=== PATIENT | female | born 1955 | race Caucasian/White ===

== ENCOUNTER 2018-12-21 22:06 | Observation (INO) | payer BC, OTHER ==
[2018-12-21 23:27] LABS: Absolute Lymphocytes (CBC) 1.9 K/uL (0.7-4.9); Absolute Monocytes 0.4 K/uL (0.1-1.3); Absolute Neutrophil 3.5 K/uL (1.8-8.0); Basophils % 0.9 % (0-1.3); Eosinophils % 2.2 % (0-4.4); Hematocrit 41.1 % (36.0-45.0); Lymphocytes % 32.2 % (15.3-44.8); Monocytes % 6.2 % (3.3-12.3); RBC Red Blood Cell Count 4.57 M/uL (3.86-4.86)
[2018-12-21 23:45] LABS: Protime INR 0.97
[2018-12-21] MEDS ORDERED: ASPIRIN 81 MG CHEWABLE TABLET ONE (23:45)
[2018-12-21] MEDS ORDERED: ENOXAPARIN 100 MG/ML SYR SQ ONE (23:45)
[2018-12-21] MEDS ORDERED: PANTOPRAZOLE 40 MG INJ ONE (23:45)
[2018-12-21] MEDS ORDERED: NA CHLORIDE 0.9% 1,000 ML ONE (23:45)
[2018-12-21] MEDS ORDERED: METOPROLOL TAR 50 MG TAB ONE (23:45)
--- NOTE | 2018-12-21 23:55 | ER ---
Nurse's Notes [facility] Name: Malina Adler Age: 63 yrs Sex: Female : 1955 Arrival Date: 12/21/2018 Time: 22:11 Bed 3 Private MD: Diagnosis: Chest pain, unspecified Presentation: 12/21 22:20 Presenting complaint: Patient states: "Pain on and off to the left side of my chest and jd3 in my neck and left arm. it is probably GERD, but I don't know.". Transition of care: patient was not received from another setting of care. Onset of symptoms was December 18, 2018. Risk Assessment: Do you want to hurt yourself or someone else? Patient reports no desire to harm self or others. Initial Sepsis Screen: Does the patient meet any 2 criteria? No. Patient's initial sepsis screen is negative. Does the patient have a suspected source of infection? No. Patient's initial sepsis screen is negative. Care prior to arrival: None. 22:20 Method Of Arrival: Ambulatory jd3 22:20 Acuity: TU 3 jd3 Historical: - Allergies: 22:25 No Known Allergies; jd3 - Home Meds: 22:25 levothyroxine oral [Active]; citalopram oral [Active]; meloxicam oral oral [Active]; jd3 gabapentin oral oral [Active]; - PMHx: 22:25 Crohn's; GERD; jd3 - PSHx: 22:25 NECK; Hernia repair; Hysterectomy; Cholecystectomy; ; jd3 - Immunization history:: Adult Immunizations up to date. - Social history:: Smoking status: Patient/guardian denies using tobacco. - Ebola Screening: : Patient negative for fever greater than or equal to 101.5 degrees Fahrenheit, and additional compatible Ebola Virus Disease symptoms. - Family history:: not pertinent. Screenin:35 Abuse screen: Denies threats or abuse. Denies injuries from another. Nutritional aa1 screening: No deficits noted. Tuberculosis screening: No symptoms or risk factors identified. Fall Risk None identified. Assessment: 22:35 General: Appears in no apparent distress. comfortable, Behavior is calm, cooperative, aa1 appropriate for age. Pain: Complains of pain in anterior aspect of left upper chest and mid-sternal area Pain radiates to left arm Quality of pain is described as pressure, Pain began 2-3 days ago. Is intermittent. Neuro: Level of Consciousness is awake, alert, obeys commands, Oriented to person, place, time, situation, Moves all extremities. Full function Speech is normal. Cardiovascular: Reports chest pain, Denies diaphoresis, lightheadedness, nausea, palpitations, shortness of breath, Heart tones S1 S2 present Capillary refill < 3 seconds Clubbing of nail beds is absent JVD is absent Patient's skin is warm and dry. Rhythm is regular Chest pain is described as mild, quality is pressure. Respiratory: Airway is patent Respiratory effort is even, unlabored, Respiratory pattern is regular, symmetrical, Breath sounds are clear bilaterally. GI: No signs and/or symptoms were reported involving the gastrointestinal system. : No signs and/or symptoms were reported regarding the genitourinary system. EENT: No signs and/or symptoms were reported regarding the EENT system. Derm: Skin is intact, is healthy with good turgor, Skin is pink, warm \\T\\ dry. Musculoskeletal: Circulation, motion, and sensation intact. Capillary refill < 3 seconds. 23:52 Reassessment: Patient appears in no apparent distress at this time. Patient and/or aa1 family updated on plan of care and expected duration. Pain level reassessed. Patient is alert, oriented x 3, equal unlabored respirations, skin warm/dry/pink. Awaiting lab results. 12/22 01:05 Reassessment: Patient appears in no apparent distress at this time. Patient and/or aa1 family updated on plan of care and expected duration. Pain level reassessed. Patient is alert, oriented x 3, equal unlabored respirations, skin warm/dry/pink. Dr. Styles at bedside for admission assessment. 02:15 Reassessment: Patient appears in no apparent distress at this time. Patient is alert, aa1 oriented x 3, equal unlabored respirations, skin warm/dry/pink. Report given to Lacey on 4th floor Patient denies pain at this time. Vital Signs: 12/21 22:21 BP 151 / 75; Pulse 83; Resp 18 S; Temp 97.9(O); Pulse Ox 98% on R/A; Weight 89.81 kg jd3 (R); Height 5 ft. 6 in. (167.64 cm) (R); Pain 5/10; 23:52 BP 139 / 66; Pulse 83; Resp 16; Pulse Ox 99% on R/A; Pain 4/10; aa1 12/22 00:58 BP 143 / 74; Pulse 71; Resp 16; Pulse Ox 98% on R/A; aa1 02:00 BP 132 / 74; Pulse 65; Resp 20; Pulse Ox 97% on R/A; lp1 02:45 BP 138 / 85; Pulse 68; Resp 18; Temp 98.0; Pulse Ox 99% on R/A; Pain 0/10; aa1 12/21 22:21 Body Mass Index 31.96 (89.81 kg, 167.64 cm) jd3 ED Course: 12/21 22:11 Patient arrived in ED. ds1 22:21 Triage completed. jd3 22:22 Arm band placed on. jd3 22:35 Patient has correct armband on for positive identification. Placed in gown. Bed in low aa1 position. Call light in reach. vehicle monitor technician on. Pulse ox on. NIBP on. Warm blanket given. 22:35 Patient maintains SpO2 saturation greater than 95% on room air. aa1 22:49 Roge Lazar MD is Attending Physician. tay 23:15 Inserted saline lock: 20 gauge in right antecubital area, using aseptic technique. ar5 23:20 X-ray completed. Portable x-ray completed in exam room. Patient tolerated procedure kw well. 23:45 XRAY Chest (1 view) In Process Unspecified. EDMS 23:46 Felicia Rose RN is Primary Nurse. aa1 12/22 01:31 Sabino Ball MD is Hospitalizing Provider. kb 02:14 No provider procedures requiring assistance completed. Patient admitted, IV remains in lp1 place. Administered Medications: 12/21 23:45 Drug: NS 0.9% 1000 ml Route: IV; Rate: 75 ml/hr; Site: right antecubital; lp1 12/22 02:21 Follow up: IV Status: IV converted to saline lock lp1 12/21 23:45 Drug: Aspirin 162 mg Route: PO; lp1 12/22 01:00 Follow up: Response: No adverse reaction lp1 12/21 23:45 Drug: Lopressor (metoprolol TARTRATE) 50 mg Route: PO; lp1 12/22 01:00 Follow up: Response: No adverse reaction lp1 12/21 23:46 Drug: ProTONIX 40 mg Route: IVP; Site: right antecubital; lp1 12/22 01:00 Follow up: Response: No adverse reaction lp1 01:36 Drug: Lovenox 1 mg/kg Route: Sub-Q; Site: right lower abdomen; aa1 02:13 Follow up: Response: No adverse reaction lp1 01:37 Not Given (Patient Refused): morphine 2 mg IVP once aa1 01:37 Not Given (Patient Refused): Zofran 4 mg IVP once; over 2 minutes aa1 Outcome: 12/21 23:54 Decision to Hospitalize by Provider. [facility] 12/22 02:14 Condition: stable lp1 Instructed on the need for admit. 02:19 Admitted to Tele accompanied by tech, via wheelchair, room 428, with chart, Report lp1 called to NORMAN Rahman 03:08 Patient left the ED. aa1 Signatures: Dispatcher [employer] EDSelena Calero, ROHIT MATHEWSP-Felicia Delacruz, RN RN aa1 Roge Lazar MD MD cha Sanford, Isabel ds1 Shaina Feng Laura, RN RN lp1 Ranyd Samuel RN RN Nata Malin ar5
--- NOTE | 2018-12-21 23:56 | EDPHYS ---
Physician Documentation [facility] Name: Malina Adler Age: 63 yrs Sex: Female : 1955 Arrival Date: 12/21/2018 Time: 22:11 Bed 3 Private MD: ED Physician Roge Lazar HPI: 12/21 23:07 This 63 yrs old Female presents to ER via Ambulatory with complaints of Chest tay Pain, L Side Pain. 23:07 The patient or guardian reports chest pain that is located primarily in the substernal tay area, anterior chest wall. Onset: 3 day(s) ago. The pain radiates to the left arm. Associated signs and symptoms: Pertinent positives: dizziness, shortness of breath. The chest pain is described as a heaviness, a pressure. Modifying factors: The symptoms are alleviated by nothing. the symptoms are aggravated by nothing. Severity of pain: At its worst the pain was moderate in the emergency department the pain has improved mildly. The patient has experienced similar episodes in the past, several times. Historical: - Allergies: 22:25 No Known Allergies; jd3 - Home Meds: 22:25 levothyroxine oral [Active]; citalopram oral [Active]; meloxicam oral oral [Active]; jd3 gabapentin oral oral [Active]; - PMHx: 22:25 Crohn's; GERD; jd3 - PSHx: 22:25 NECK; Hernia repair; Hysterectomy; Cholecystectomy; ; jd3 - Immunization history:: Adult Immunizations up to date. - Social history:: Smoking status: Patient/guardian denies using tobacco. - Ebola Screening: : Patient negative for fever greater than or equal to 101.5 degrees Fahrenheit, and additional compatible Ebola Virus Disease symptoms. - Family history:: not pertinent. ROS: 23:07 Constitutional: Negative for fever, chills, and weight loss, Eyes: Negative for injury, tay pain, redness, and discharge, ENT: Negative for injury, pain, and discharge, Neck: Negative for injury, pain, and swelling, Cardiovascular: Negative for chest pain, palpitations, and edema, Abdomen/GI: Negative for abdominal pain, nausea, vomiting, diarrhea, and constipation, Back: Negative for injury and pain, : Negative for injury, bleeding, discharge, and swelling, MS/Extremity: Negative for injury and deformity, Skin: Negative for injury, rash, and discoloration, Neuro: Negative for headache, weakness, numbness, tingling, and seizure, Psych: Negative for depression, anxiety, suicide ideation, homicidal ideation, and hallucinations, Allergy/Immunology: Negative for hives, rash, and allergies, Endocrine: Negative for neck swelling, polydipsia, polyuria, polyphagia, and marked weight changes, Hematologic/Lymphatic: Negative for swollen nodes, abnormal bleeding, and unusual bruising. 23:07 Respiratory: Positive for cough, shortness of breath, at rest. Exam: 23:07 Constitutional: This is a well developed, well nourished patient who is awake, alert, tay and in no acute distress. Head/Face: Normocephalic, atraumatic. Eyes: Pupils equal round and reactive to light, extra-ocular motions intact. Lids and lashes normal. Conjunctiva and sclera are non-icteric and not injected. Cornea within normal limits. Periorbital areas with no swelling, redness, or edema. ENT: Nares patent. No nasal discharge, no septal abnormalities noted. Tympanic membranes are normal and external auditory canals are clear. Oropharynx with no redness, swelling, or masses, exudates, or evidence of obstruction, uvula midline. Mucous membranes moist. Neck: Trachea midline, no thyromegaly or masses palpated, and no cervical lymphadenopathy. Supple, full range of motion without nuchal rigidity, or vertebral point tenderness. No Meningismus. Chest/axilla: Normal chest wall appearance and motion. Nontender with no deformity. No lesions are appreciated. Cardiovascular: Regular rate and rhythm with a normal S1 and S2. No gallops, murmurs, or rubs. Normal PMI, no JVD. No pulse deficits. Respiratory: Lungs have equal breath sounds bilaterally, clear to auscultation and percussion. No rales, rhonchi or wheezes noted. No increased work of breathing, no retractions or nasal flaring. Abdomen/GI: Soft, non-tender, with normal bowel sounds. No distension or tympany. No guarding or rebound. No evidence of tenderness throughout. Back: No spinal tenderness. No costovertebral tenderness. Full range of motion. Skin: Warm, dry with normal turgor. Normal color with no rashes, no lesions, and no evidence of cellulitis. MS/ Extremity: Pulses equal, no cyanosis. Neurovascular intact. Full, normal range of motion. Neuro: Awake and alert, GCS 15, oriented to person, place, time, and situation. Cranial nerves II-XII grossly intact. Motor strength 5/5 in all extremities. Sensory grossly intact. Cerebellar exam normal. Normal gait. Psych: Awake, alert, with orientation to person, place and time. Behavior, mood, and affect are within normal limits. 23:07 Musculoskeletal/extremity: ROM: intact in all extremities, full active range of motion, full passive range of motion, Circulation is intact in all extremities. Sensation intact. Compartment Syndrome exam of affected extremity: is normal. DVT Exam: No signs of deep vein thrombosis. no pain, no swelling, no tenderness, negative Homans' sign noted on exam, no appreciated bluish discoloration, no erythema, no increased warmth. Vital Signs: 22:21 BP 151 / 75; Pulse 83; Resp 18 S; Temp 97.9(O); Pulse Ox 98% on R/A; Weight 89.81 kg jd3 (R); Height 5 ft. 6 in. (167.64 cm) (R); Pain 5/10; 23:52 BP 139 / 66; Pulse 83; Resp 16; Pulse Ox 99% on R/A; Pain 4/10; aa1 12/22 00:58 BP 143 / 74; Pulse 71; Resp 16; Pulse Ox 98% on R/A; aa1 02:00 BP 132 / 74; Pulse 65; Resp 20; Pulse Ox 97% on R/A; lp1 02:45 BP 138 / 85; Pulse 68; Resp 18; Temp 98.0; Pulse Ox 99% on R/A; Pain 0/10; aa1 12/21 22:21 Body Mass Index 31.96 (89.81 kg, 167.64 cm) jd3 MDM: 12/21 22:49 Patient medically screened. [facility] 23:10 Data reviewed: vital signs, nurses notes, lab test result(s), EKG, radiologic studies, [facility] CT scan, plain films. 12/21 23:06 Order name: Basic Metabolic Panel; Complete Time: 00:18 [facility] 12/21 23:06 Order name: CBC with Diff; Complete Time: 23:52 [facility] 12/21 23:06 Order name: LFT's; Complete Time: 00:18 [facility] 12/21 23:06 Order name: Magnesium; Complete Time: 00:18 [facility] 12/21 23:06 Order name: NT PRO-BNP; Complete Time: 00:18 [facility] 12/21 23:06 Order name: PT-INR; Complete Time: 23:52 [facility] 12/21 23:06 Order name: Troponin (emerg Dept Use Only); Complete Time: 00:18 [facility] 12/21 23:06 Order name: XRAY Chest (1 view) [facility] 12/21 23:06 Order name: Lipase; Complete Time: 00:18 [facility] 12/21 23:06 Order name: Urine Culture [facility] 12/21 23:06 Order name: EKG; Complete Time: 23:07 [facility] 12/21 23:06 Order name: Cardiac monitoring; Complete Time: 23:28 [facility] 12/21 23:06 Order name: EKG - Nurse/Tech; Complete Time: 23:27 [facility] 12/21 23:06 Order name: IV Saline Lock; Complete Time: 23:27 [facility] 12/21 23:06 Order name: Labs collected and sent; Complete Time: 23:27 [facility] 12/21 23:06 Order name: O2 Per Protocol; Complete Time: 23:27 [facility] 12/21 23:06 Order name: O2 Sat Monitoring; Complete Time: 23:27 [facility] Administered Medications: 23:45 Drug: NS 0.9% 1000 ml Route: IV; Rate: 75 ml/hr; Site: right antecubital; lp1 12/22 02:21 Follow up: IV Status: IV converted to saline lock lp1 12/21 23:45 Drug: Aspirin 162 mg Route: PO; lp1 12/22 01:00 Follow up: Response: No adverse reaction lp1 12/21 23:45 Drug: Lopressor (metoprolol TARTRATE) 50 mg Route: PO; lp1 12/22 01:00 Follow up: Response: No adverse reaction lp1 12/21 23:46 Drug: ProTONIX 40 mg Route: IVP; Site: right antecubital; lp1 12/22 01:00 Follow up: Response: No adverse reaction lp1 01:36 Drug: Lovenox 1 mg/kg Route: Sub-Q; Site: right lower abdomen; aa1 02:13 Follow up: Response: No adverse reaction lp1 01:37 Not Given (Patient Refused): morphine 2 mg IVP once aa1 01:37 Not Given (Patient Refused): Zofran 4 mg IVP once; over 2 minutes aa1 Disposition: 12/21/18 23:54 Hospitalization ordered by Sabino Ball for Observation. Preliminary diagnosis is Chest pain, unspecified. - Bed requested for Telemetry/MedSurg (observation). - Status is Observation. aa1 - Condition is Fair. - Problem is new. - Symptoms have improved. UTI on Admission? No Signatures: Dispatcher [employer] EDMS Selena Burrows, CINDER PITMAN-C CINDER PITMAN-CkFelicia Langston, RN RN aa1 Roge Lazar MD MD cha Pena, Laura, RN RN lp1 Randy Samuel RN RN jd3 Corrections: (The following items were deleted from the chart) 01:31 12/21 23:54 Hospitalization Ordered by for Observation. Preliminary diagnosis is Chest kb pain, unspecified. Bed requested for Telemetry/MedSurg (observation). Status is Observation. Condition is Fair. Problem is new. Symptoms have improved. UTI on Admission? No. tay 12/22 03:08 01:31 12/21/2018 23:54 Hospitalization Ordered by Sabino Ball MD for Observation. aa1 Preliminary diagnosis is Chest pain, unspecified. Bed requested for Telemetry/MedSurg (observation). Status is Observation. Condition is Fair. Problem is new. Symptoms have improved. UTI on Admission? No. kb
[2018-12-22 00:04] LABS: ALT/SGPT 25 U/L (12-78); AST/SGOT 24 U/L (15-37); Albumin 3.8 g/dL (3.4-5.0); Alkaline Phosphatase 113 U/L (45-117); BUN Blood Urea Nitrogen 16 mg/dL (7-18); Bicarbonate 25 mmol/L (21-32); Bilirubin Direct < 0.1 mg/dL (0-0.2); Bilirubin Total 0.2 mg/dL (0.2-1.0); Glucose Level 103 mg/dL (74-106); Lipase 130 U/L (73-393); Magnesium 1.9 mg/dL (1.8-2.4); NT PRO-BNP 42 pg/mL (<125); Potassium 3.6 mmol/L (3.5-5.1); Protein, Total 7.2 g/dL (6.4-8.2); Sodium Level 143 mmol/L (136-145); Troponin (Emerg Dept Use Only) < 0.02 ng/mL (0.0-0.045)
[2018-12-22] MEDS ORDERED: NITROGLYCERIN 0.4 MG/TAB SL PRN (02:40)
[2018-12-22] MEDS ORDERED: ACETAMINOPHEN 500 MG TAB PO PRN (02:40)
[2018-12-22 03:55] LABS: Absolute Lymphocytes (CBC) 2.6 K/uL (0.7-4.9); Absolute Monocytes 0.4 K/uL (0.1-1.3); Absolute Neutrophil 3.7 K/uL (1.8-8.0); Basophils % 0.7 % (0-1.3); Eosinophils % 1.9 % (0-4.4); Hematocrit 38.2 % (36.0-45.0); Lymphocytes % 37.3 % (15.3-44.8); RBC Red Blood Cell Count 4.23 M/uL (3.86-4.86)
[2018-12-22 04:06] LABS: BUN Blood Urea Nitrogen 18 mg/dL (7-18); Bicarbonate 28 mmol/L (21-32); Glucose Level 106 mg/dL (74-106); Sodium Level 144 mmol/L (136-145); Troponin I < 0.02 ng/mL (0.0-0.045)
--- NOTE | 2018-12-22 04:51 | P.HP ---
Certification for Inpatient Patient admitted to: Observation With expected LOS: <2 Midnights Practitioner: I am a practitioner with admitting privileges, knowledge of patient current condition, hospital course, and medical plan of care. Services: Services provided to patient in accordance with Admission requirements found in Title 42 Section 412.3 of the Code of Federal Regulations Patient History Date of Service: 12/22/18 Reason for admission: chest pain History of Present Illness: Ms Adler is a 63 years old woman with history of hypothyroidism, GERD who came to ED complaining of chest pain. The pain started early in the morning and is comes and go. It is a pressure like pain, retrosternal, radiated to the left arm and back. When the pain start, it last for about 20 minutes. 6/10 of intensity, never had this symptoms in the past. Lab work remarkable for normal WBC count, initial trop I is negative, EKG without ST-T abnormalities. Allergies avocado Allergy (Verified 12/22/18 03:38) Anaphylaxis Home medications list reviewed: Yes Home Medications: Citalopram [Celexa*] 20 mg PO DAILY 6PM 12/22/18 Dicyclomine HCl 20 mg PO QID PRN 12/22/18 Gabapentin 600 mg PO BID 12/22/18 Levothyroxine [Synthroid] 2 tab PO [id number] 12/22/18 Meloxicam 15 mg PO DAILY 12/22/18 - Past Medical/Surgical History Has patient received pneumonia vaccine in the past: Yes Diabetic: No -: crohns -: gerd -: hypothyroidism -: hernia repair -: hysterectomy -: colecystectomy -: neck surgery - Family History Father -: Heart disease Mother -: Heart disease - Social History Smoking Status: Never smoker Alcohol use: Yes CD- Drugs: No Caffeine use: Yes Place of Residence: Home Review of Systems 10-point ROS is otherwise unremarkable Physical Examination - Physical Exam General: Alert, In no apparent distress HEENT: Atraumatic, PERRLA, Mucous membr. moist/pink, EOMI, Sclerae nonicteric Neck: Supple, 2+ carotid pulse no bruit, No LAD, Without JVD or thyroid abnormality Respiratory: Clear to auscultation bilaterally, Normal air movement Cardiovascular: Regular rate/rhythm, Normal S1 S2 Gastrointestinal: Normal bowel sounds, No tenderness Musculoskeletal: No tenderness Integumentary: No rashes Neurological: Normal speech, Normal strength at 5/5 x4 extr, Normal tone, Normal affect Lymphatics: No axilla or inguinal lymphadenopathy - Studies Laboratory Data (last 24 hrs) 12/21/18 23:35: PT 11.4, INR 0.97 12/21/18 23:15: WBC 6.0, Hgb 13.8, Hct 41.1, Plt Count 234 12/21/18 23:15: Sodium 143, Potassium 3.6, BUN 16, Creatinine 0.80, Glucose 103 , Magnesium 1.9, Total Bilirubin 0.2, AST 24, ALT 25, Alkaline Phosphatase 113, Lipase 130 Assessment and Plan - Problems (Diagnosis) (1) Chest pain Current Visit: Yes Status: Acute Qualifiers: Chest pain type: precordial pain Qualified Code(s): R07.2 - Precordial pain (2) Hypothyroidism Current Visit: Yes Status: Acute Qualifiers: Hypothyroidism type: unspecified Qualified Code(s): E03.9 - Hypothyroidism , unspecified (3) GERD (gastroesophageal reflux disease) Current Visit: Yes Status: Acute Qualifiers: Esophagitis presence: without esophagitis Qualified Code(s): K21.9 - Gastro -esophageal reflux disease without esophagitis - Plan Will admit the patient to the hospital due to chest pain to rule out ACS. Will order serial cardiac enzymes, EKG, consult cardiology team. - Advance Directives Does patient have a Living Will: No Does patient have a Durable POA for Healthcare: No - Code Status/Comfort Care Code Status Assessed: Yes Code Status: Full Code
[2018-12-22 06:50] LABS: HDL Cholesterol 43 mg/dL (40-60); LDL Cholesterol, Calculated 94 (<130)
--- NOTE | 2018-12-22 06:59 | EKG ---
Test Date: 2018-12-21 Test Time: 22:39:06 Distribution Lineman: PHILLIP MEASUREMENT RESULTS: Intervals: Rate: 74 ND: 174 QRSD: 76 QT: 380 QTc: 421 [place]: P: 26 ND: 174 QRS: 38 T: 56 INTERPRETIVE STATEMENTS: Normal sinus rhythm Normal ECG Compared to ECG 11/29/2010 09:38:15 Myocardial infarct finding no longer present Electronically Signed On 12-22-18 06:51:40 LINING VAMPER by Rich Escalante
[2018-12-22 07:47] LABS: Thyroid Stimulating Hormone 0.01 uIU/mL (0.360-3.740)
[2018-12-22] MEDS ORDERED: REGADENOSON 0.4 MG/5 ML SYR IV ONE (08:07)
--- NOTE | 2018-12-22 08:29 | RAD REPORT ---
EXAM DESCRIPTION: RAD - Chest Single View - 12/21/2018 11:45 pm CLINICAL HISTORY: CHEST PAIN Chest pain. COMPARISON: CHEST PA AND LAT 2 VIEW dated 11/29/2010; CHEST PA AND LAT 2 VIEW dated 10/16/2010; CHEST SINGLE VIEW dated 10/30/2006 FINDINGS: Portable technique limits examination quality. The lungs are grossly clear. The heart is normal in size. No displaced fractures.Cervical hardware pl ate is noted. IMPRESSION: No acute intrathoracic process suspected.
[2018-12-22] MEDS ORDERED: ASPIRIN EC 81 MG TAB PO SCH (09:00)
--- NOTE | 2018-12-22 11:00 | ECHO ---
HEIGHT: 5 ft 6 in WEIGHT: 215 lb 3.2 oz DATE OF STUDY: 12/22/[address]: Sabino Styles MD 2-DIMENSIONAL: YES M.MODE: YES DOPPLER: YES COLOR FLOW: YES TDS: NO PORTABLE: NO DEFINITY: NO BUBBLE STUDY: NO DIAGNOSIS: CHEST PAIN CARDIAC HISTORY: CATHERIZATION: NO SURGERY: NO PROSTHETIC VALVE: NO PACEMAKER: NO MEASUREMENTS (cm) DIASTOLIC (NORMALS) SYSTOLIC (NORMALS) IVSd 1.1 (0.6-1.2) LA Diam 3.5 (1.9-4.0) LVEF 62% LVIDd 4.5 (3.5-5.7) LVIDs 3.0 (2.0-3.5) %FS 33% LVPWd 1.2 (0.6-1.2) Ao Diam 2.6 (2.0-3.7) 2 DIMENSIONAL ASSESSMENT: RIGHT ATRIUM: NORMAL LEFT ATRIUM: NORMAL RIGHT VENTRICLE: NORMAL LEFT VENTRICLE: NORMAL TRICUSPID VALVE: NORMAL MITRAL VALVE: NORMAL PULMONIC VALVE: NORMAL AORTIC VALVE: NORMAL PERICARDIAL EFFUSION: NONE AORTIC ROOT: NORMAL LEFT VENTRICULAR WALL MOTION: NORMAL. DOPPLER/COLOR FLOW: NORMAL. COMMENTS: NORMAL 2D ECHO WITH DOPPLER. TECHNOLOGIST: TRINITY TAVARES
[2018-12-22] MEDS ORDERED: ENOXAPARIN 100 MG/ML SYR SQ SCH (11:45)
--- NOTE | 2018-12-22 12:20 | CON ---
History Of Present Illness: Ms. dAler is 63. She came to the hospital with chest pain. She is having chest pain for several days. It seems to be a sharp stabbing pain that comes and goes, right in the front part of her chest. Never had myocardial infarction, stroke, or diabetes, or any vascula r disease. She takes meloxicam for degenerative joint disease. She also takes gabapentin, Celexa, l evothyroxine, and dicyclomine. Physical Examination: General: 5 feet 6 inches, 215 pounds. HEENT: Normal. Lungs: Clear. Cardiac: Within normal limits. Abdomen: Soft. Extremities: Normal. Diagnostic Data: Her electrocardiogram is normal. Recommendation: We should do a stress test and EKG on her. Check if enzymes are normal. If those a re normal, she could be discharged home. We can call this either pleurisy or gastritis. She should be cautioned against using meloxicam other than 2 or 3 days at a time. ELKE/CARMELA Voice ID: [id number] Report ID: [id number]
--- NOTE | 2018-12-22 13:05 | RAD REPORT ---
EXAM DESCRIPTION: NM - Rest Stress Cardiac Imaging - 12/22/2018 1:00 pm CLINICAL HISTORY: CP Chest pain. COMPARISON: No comparisons TECHNIQUE: The patient was administered approximately 10mCi of Tc 99m Sestamibi prior to resting SPE CT imaging of the heart. The patient was then administered approximately 30 mCi of Tc 99m Sestamibi f ollowing exercise or pharmacologic stress. Multiplanar SPECT images were reviewed. FINDINGS: No stress induced ischemic defect is seen to suggest stress induced ischemia. No fixed def ect is seen to suggest hibernating myocardium or scarred myocardium. The end diastolic volume is 81 ml, the end systolic volume is 27 ml, and the ejection fraction is 66 %. IMPRESSION: No stress induced ischemia.
--- NOTE | 2018-12-22 13:09 | P.DS ---
Admission Date: 12/22/18 Discharge Date: 12/22/18 Primary Care Provider: Dr. Parks; Cardiology-Dr. Escalante Disposition: ROUTINE DISCHARGE Discharge Condition: GOOD Reason for Admission: chest pain Consultations: Cardiology-Dr. Escalante Procedures: ECHO: Ejection fraction 62% LEFT VENTRICULAR WALL MOTION: NORMAL. DOPPLER/COLOR FLOW: NORMAL. COMMENTS: NORMAL 2D ECHO WITH DOPPLER. Cardiac stress test: COMPARISON: No comparisons TECHNIQUE: The patient was administered approximately 10mCi of Tc 99m Sestamibi prior to resting SPECT imaging of the heart. The patient was then administered approximately 30 mCi of Tc 99m Sestamibi following exercise or pharmacologic stress. Multiplanar SPECT images were reviewed. FINDINGS: No stress induced ischemic defect is seen to suggest stress induced ischemia. No fixed defect is seen to suggest hibernating myocardium or scarred myocardium. The end diastolic volume is 81 ml, the end systolic volume is 27 ml, and the ejection fraction is 66 %. IMPRESSION: No stress induced ischemia. Medical Problem List: Atypical chest pain likely GERD related Elevated blood pressure without hypertension Hypothyroidism GERD Depression Chronic pain Obesity, BMI 34 Brief History of Present Illness: 63-year-old female presented emergency room with chest pain. Initial cardiac enzymes unremarkable. Patient was admitted for further evaluation. Hospital Course: Patient presented with chest pain. Patient was admitted for further evaluation. Cardiac enzymes unremarkable. Patient seen and evaluated by Cardiology. Echocardiogram unremarkable. Cardiac stress test showed no stress-induced ischemia. This may be related to underlying GERD. Patient has been using meloxicam regularly for pain. Recommend to continue with Pepcid 20 mg 1 pill twice daily. Recommend to discontinue meloxicam. Recommend to follow up with cardiology as directed. Recommend to follow up with GI as an outpatient for further evaluation. Patient may require EGD in the future. Lifestyle modification education provided. Patient had mild elevation in blood pressure. Patient without hypertension. Recommend to monitor blood pressures closely. If her blood pressures remained elevated above 140/90 consistently she is to follow up with her PCP to further address. Patient with hypothyroidism. Thyroid level slightly abnormal. Patient takes levothyroxine 250 mcg daily. Recommend to follow up with her PCP in 1 week to recheck TSH and Free T4 levels. Decrease in medication may be required. Patient with depression. Patient will continue with her medication-Celexa 20 mg daily. Patient with chronic pain. Recommend to continue with gabapentin 600 mg twice daily. Recommend to discontinue meloxicam or use it sparingly. Further adjustment in medication may be required. Recommend to follow up with her PCP or pain management to further evaluate. Patient with obesity. Lifestyle modification education will be provided. Vital Signs/Physical Exam: Temp Pulse Resp BP Pulse Ox 97.6 F 65 18 125/75 98 12/22/18 08:00 12/22/18 08:00 12/22/18 08:00 12/22/18 08:00 12/22/18 08:00 General: Alert, In no apparent distress, Oriented x3, Cooperative HEENT: Atraumatic Neck: Supple Respiratory: Clear to auscultation bilaterally, Normal air movement Cardiovascular: Normal pulses, Regular rate/rhythm Gastrointestinal: Normal bowel sounds, Soft and benign, Non-distended, No tenderness, No masses, No rebound, No guarding Musculoskeletal: No erythema, No tenderness, No warmth Integumentary: No tenderness/swelling, No erythema, No warmth, No cyanosis Neurological: Normal speech, Normal strength at 5/5 x4 extr, Normal tone, Normal affect Laboratory Data at Discharge: WBC 6.9 K/uL (4.3-10.9) D 12/22/18 03:38 Hgb 12.7 g/dL (12.0-15.0) 12/22/18 03:38 Hct 38.2 % (36.0-45.0) 12/22/18 03:38 Plt Count 223 K/uL (152-406) 12/22/18 03:38 PT 11.4 SECONDS (9.5-12.5) 12/21/18 23:35 INR 0.97 12/21/18 23:35 Sodium 144 mmol/L (136-145) 12/22/18 03:38 Potassium 4.0 mmol/L (3.5-5.1) 12/22/18 03:38 BUN 18 mg/dL (7-18) 12/22/18 03:38 Creatinine 0.70 mg/dL (0.55-1.3) 12/22/18 03:38 Glucose 106 mg/dL (74-106) 12/22/18 03:38 Magnesium 1.9 mg/dL (1.8-2.4) 12/21/18 23:15 Total Bilirubin 0.2 mg/dL (0.2-1.0) 12/21/18 23:15 AST 24 U/L (15-37) 12/21/18 23:15 ALT 25 U/L (12-78) 12/21/18 23:15 Alkaline Phosphatase 113 U/L (45-117) 12/21/18 23:15 Troponin I < 0.02 ng/mL (0.0-0.045) 12/22/18 10:46 Triglycerides Cancelled 12/22/18 05:49 Cholesterol Cancelled 12/22/18 05:49 HDL Cholesterol Cancelled 12/22/18 05:49 Cholesterol/HDL Ratio Cancelled 12/22/18 05:49 Lipase 130 U/L (73-393) 12/21/18 23:15 Home Medications: Citalopram [Celexa*] 20 mg PO DAILY 6PM 12/22/18 Dicyclomine HCl 20 mg PO QID PRN 12/22/18 Famotidine [Pepcid] 20 mg PO BID #60 tab 12/22/18 Gabapentin 600 mg PO BID 12/22/18 Levothyroxine [Synthroid*] 2 tab PO [id number] 12/22/18 New Medications: Famotidine [Pepcid] 20 mg PO BID #60 tab Patient Discharge Instructions: 1. Patient will need to follow up with her PCP within 1 week to follow up this hospitalization. 2. Patient presented with chest pain. Patient was admitted for further evaluation. Cardiac enzymes unremarkable. Patient seen and evaluated by Cardiology. Echocardiogram unremarkable. Cardiac stress test showed no stress-induced ischemia. This may be related to underlying GERD. Patient has been using meloxicam regularly for pain. Recommend to continue with Pepcid 20 mg 1 pill twice daily. Recommend to discontinue meloxicam. Recommend to follow up with cardiology as directed. Recommend to follow up with GI as an outpatient for further evaluation. Patient may require EGD in the future. Lifestyle modification education provided. 3. Patient had mild elevation in blood pressure. Patient without hypertension. Recommend to monitor blood pressures closely. If her blood pressures remained elevated above 140/90 consistently she is to follow up with her PCP to further address. 4. Patient with hypothyroidism. Thyroid level slightly abnormal. Patient takes levothyroxine 250 mcg daily. Recommend to follow up with her PCP in 1 week to recheck TSH and Free T4 levels. Decrease in medication may be required. 5. Patient with depression. Patient will continue with her medication-Celexa 20 mg daily. 6. Patient with chronic pain. Recommend to continue with gabapentin 600 mg twice daily. Recommend to discontinue meloxicam or use it sparingly. Further adjustment in medication may be required. Recommend to follow up with her PCP or pain management to further evaluate. 7. Patient with obesity. Lifestyle modification education will be provided. Diet: AHA Activity: Ad oneal Time spent managing pt's care (in minutes): 55
--- NOTE | 2018-12-23 09:03 | TREADPHA ---
DX: CHEST PAIN Date of Study: 12/22/2018 Ht: 5 6 Wt: 215 lb 3.2 oz Consulting Physician: NOBLE MEDICATIONS: TYLENOL, ASPIRIN, LOVENOX, NITROSTAT HISTORY: 63 YEAR OLD FEMALE WITH COMPLAINTS OF CHEST PAIN. HISTORY OF [place], GERD, HYPOTHYROIDISM, NON-SMOKER, OCCASIONAL DRINKER. PHYSICIAL EXAMINATION: RESTING B.P.: 138/82 RESTING H.R.: 68 RESTING EKG: NORMAL PROTOCOL: LEXISCAN EXERCISE TIME: 3:30 B.P. AT PEAK STRESS: 137/72 IMPRESSION: LEXISCAN INJECTED, FOLLOWED BY CARDIOLITE PROTOCOL, SEE NUCLEAR MEDICINE REPORT. NO SUPRAVENTRICULAR TACHYCARDIA. NO VENTRICULAR TACHYCARDIA. NO PREMATURE ATRIAL COMPLEXES. NO PREMATURE VENTRICULAR COMPLEXES. 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 CHEST TIGHTNESS FOUR OUT OF TEN ON PAIN SCALE DURING AND BACK TO TWO OUT OF TEN ON PAIN SCALE IN RECOVERY. NON-DIAGNOSTIC ELECTROCARDIOGRAM WITH LEXICAN STRESS.
== END 2018-12-22 15:40 | disposition home or self-care (01) ==
LOC: ER 22:06 → ERHOLD 12-22 01:18 → 4TH 12-22 02:21
PROVIDERS: ADMIT Internal Medicine; ATTEND Internal Medicine
DX: R07.89 Other chest pain (principal); R03.0 Elevated blood-pressure reading, without diagnosis of hypertension; E03.9 Hypothyroidism, unspecified; K21.9 Gastro-esophageal reflux disease without esophagitis; F32.9 Major depressive disorder, single episode, unspecified; E66.9 Obesity, unspecified; Z68.34 Body mass index [BMI] 34.0-34.9, adult
CPT/HCPCS: 36415; 71045; 78452; 80048; 80061; 80076; 83690; 83735; 83880; 84439; 84443; 84484; 85025; 85610; 87086; 87088; 93005; 93017; 93306; 96361; 96372; 96374; 99285; A9500; C9113; G0378; J1650; J2785; J7030

== ENCOUNTER 2021-12-11 06:09 | Day surgery (SDC) | payer BC ==
[2021-12-11] MEDS ORDERED: Ringers Lactate 1,000 ML IV ONE (06:16)
[2021-12-11] MEDS ORDERED: propofoL 200 MG/20 ML VIAL IV ONE ×2 (07:26)
[2021-12-11] MEDS ORDERED: LIDOCAINE 1% MPF 5 ML VIAL ONE (07:26)
--- NOTE | 2021-12-11 08:01 | ENDO RPT ---
[address], [address] COLONOSCOPY PROCEDURE REPORT EXAM DATE: 12/11/2021 PATIENT NAME: Malina Adler MR #: [id number] BIRTHDATE: 1955 ATTENDING: Alo Phillips MD STATUS: outpatient RECIPROCATING DRILL OPERATOR: Gabino Soriano CST and Erica Samano RN INDICATIONS: The patient is a 66 yr old Female here for a colonoscopy due to change in bowel habits PROCEDURE PERFORMED: Colonoscopy with biopsy - cold polypectomy MEDICATIONS: Per Anesthesia. ESTIMATED BLOOD LOSS: None CONSENT: The patient understands the risks and benefits of the procedure and understands that these risks include, but are not limited to: sedation, allergic reaction, infection, perforation and/or bleeding. Alternative means of evaluation and treatment include, among others: physical exam, x-rays, and/or surgical intervention. The patient elects to proceed with this endoscopic procedure. DESCRIPTION OF PROCEDURE: During intra-op preparation period all mechanical medical equipment was checked for proper function. Hand hygiene and appropriate measures for infection prevention was taken. Procedure, possible complications, alternatives including, but not limited to possibility of bleeding, perforation, tear, infection, sepsis, need for surgery, need for blood transfusion, were explained to the patient. After the risks, benefits and alternatives of the procedure were thoroughly explained, Informed consent was verified, confirmed and timeout was successfully executed by the treatment team. The patient was placed in the left lateral position. A digital rectal exam was performed and revealed external hemorrhoids and A digital rectal exam was performed and revealed internal hemorrhoids. After appropriate level of anesthesia, the scope was passed. The [id number] ([id number]) endoscope was introduced through the anus and advanced to the cecum, which was identified by transillumination from the light source, the appendix, and the ileocecal valve. The quality of the prep was good. The instrument was then slowly withdrawn as the colon was fully examined. Scope withdrawal time was . COLON FINDINGS: A sessile polyp ranging between 3-5mm in size with a friable surface was found in the descending colon. Multiple biopsies were performed using hot forceps. Diverticula was found in the descending colon. The opening was medium sized. Retroflexed views revealed no abnormalities. The scope was then completely withdrawn from the patient and the procedure terminated. ADVERSE EVENTS: There were no complications. IMPRESSIONS: 1. Sessile polyp ranging between 3-5mm in size was found in the descending colon; multiple biopsies were performed using hot forceps 2. Diverticula in the descending colon 3. External hemorrhoids 4. Internal hemorrhoids RECOMMENDATIONS: 1. follow-up: office 1 week(s) 2. await biopsy results 3. no seeds in diet 4. hemorrhoidal hygiene RECALL: for Colonoscopy, pending biopsy results. Alo Phillips MD eSigned: Alo Phillips MD 12/11/2021 8:00 AM cc: Ana Parks M.D. CPT CODES: ICD9 CODES: PATIENT NAME: Malina Adler MR#: [id number]
[2021-12-11 09:39] VITALS: BP 114/83; TEMP 97.1; O2SAT 96
== END 2021-12-11 08:26 | disposition home or self-care (01) ==
LOC: OR 06:09
PROVIDERS: ATTEND Surgery
PROC: 0DBM8ZX Excision of Descending Colon, Via Natural or Artificial Opening Endoscopic, Diagnostic (ICD-10-PCS; 2021-12-11)
PROC: 0DBE8ZX Excision of Large Intestine, Via Natural or Artificial Opening Endoscopic, Diagnostic (ICD-10-PCS; principal; 2021-12-11 07:30)
DX: K57.30 Diverticulosis of large intestine without perforation or abscess without bleeding (principal); D36.9 Benign neoplasm, unspecified site; K64.4 Residual hemorrhoidal skin tags; K64.8 Other hemorrhoids
CPT/HCPCS: 45380; 88305; J2704; J7120